=== PATIENT | female | born 1940 | race American Indian/Alaskan Native ===

== ENCOUNTER 2017-04-08 09:52 | Outpatient (CLI) | payer MEDICARE ==
--- NOTE | 2017-04-10 06:49 | Vascular Lab Report ---
RENAL ARTERY DUPLEX EXAM: REASON FOR EXAM: Hypertension. NOTE: Visualization is technically poor due to body habitus. COMMENTS ON THE AORTA: The aorta is patent. Elevated flow velocities are observed. No aneurysmal dilatation is noted. Mild atherosclerotic change is identified. The celiac artery is patent with elevated flow velocity. The superior mesenteric artery is patent with normal flow velocity. COMMENTS ON THE RIGHT KIDNEY: The kidney measures 10.7 centimeters in greatest dimension. No obvious parenchymal abnormalities are noted. The renal artery is patent. Maximum systolic velocity is 67 cm/sec. This finding is consistent with s than 60% diameter reduction. Renal aortic index is not obtained due to elevated aortic velocity. Overall findings are consistent with less than 60% diameter reduction in the renal artery. COMMENTS ON THE LEFT KIDNEY: The kidney measures 11.2 centimeters in greatest dimension. No obvious parenchymal abnormalities are noted. The renal artery is patent. Maximum systolic velocity is 59 cm/sec. This finding is consistent with less than 60% diameter reduction. Renal aortic index is not obtained due to elevated aortic velocity. Overall findings are consistent with less than 60% diameter reduction in the renal artery. IMPRESSION: RIGHT KIDNEY: Less than 60% diameter reduction in the renal artery. LEFT KIDNEY: Less than 60% diameter reduction in the renal artery. 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 Clinical correlation recommended
== END 2017-04-08 09:53 | disposition home or self-care (01) ==
LOC: VAS 09:52
PROVIDERS: ATTEND Internal Medicine Cardiovascular Disease
DX: I10 Essential (primary) hypertension (principal)
CPT/HCPCS: 93975